=== PATIENT | female | born 1995 | race American Indian/Alaskan Native ===

== ENCOUNTER 2018-08-15 11:05 | Emergency (ER) | payer SELFPAY ==
[2018-08-15 11:20] VITALS: BP 116/72
[2018-08-15] MEDS ORDERED: TORADOL IM ONE (12:13)
[2018-08-15] MEDS ORDERED: DILAUDID IM ONE (12:13)
[2018-08-15] MEDS ORDERED: XYLOCAINE 1%/ EPI 1:100,000 INFILTRATI NR (13:00)
[2018-08-15] MEDS ORDERED: CLEOCIN PO ONE (13:16)
--- NOTE | 2018-08-15 13:16 | Emergency Department Report ---
ED General Adult HPI - General Chief complaint: Skin/Abscess/Foreign Body Stated complaint: CHEST PAIN/INFECTION L BUTT CHEEK Time Seen by Provider: 08/15/18 12:06 Source: patient Mode of arrival: Ambulatory Limitations: No Limitations - History of Present Illness Initial comments: Patient is a 23-year-old Female presenting with a left buttock abscess. Patient states his present for approximately 2-3 days. Patient has had pain as a 7 out of 10 in severity. Patient states is associated nausea and chest discomfort that is intermittent. Patient denies fever currently states she thinks she may have had a fever last night and had chills. Patient state states that the pain is aching in nature. Direct pressure makes it worse Severity scale (0 -10): 8 - Related Data Previous Rx's Medication Instructions Recorded Last Taken Type Clindamycin [Clindamycin CAP] 300 mg PO Q8H #21 cap 08/15/18 Unknown Rx HYDROcodone/APAP 5-325 [[place] 1 each PO Q6HR PRN #14 tablet 08/15/18 Unknown Rx 5/325] Ibuprofen [Motrin 600 MG tab] 600 mg PO Q8H PRN #20 tablet 08/15/18 Unknown Rx Ondansetron [Zofran Odt] 4 mg PO Q8HR #10 tab.rapdis 08/15/18 Unknown Rx Allergies Allergy/AdvReac Type Severity Reaction Status Date / Time No Known Allergies Allergy Unverified 08/15/18 11:09 ED Review of Systems ROS: Stated complaint: CHEST PAIN/INFECTION L BUTT CHEEK Other details as noted in HPI Comment: All other systems reviewed and negative ED Past Medical Hx - Past Medical History Previous Medical History?: No - Surgical History Past Surgical History?: No - Social History Smoking Status: Current Some Day Smoker Substance Use Type: None - Medications Home Medications: Home Medications Medication Instructions Recorded Confirmed Last Taken Type Clindamycin [Clindamycin CAP] 300 mg PO Q8H #21 cap 08/15/18 Unknown Rx HYDROcodone/APAP 5-325 [[place] 1 each PO Q6HR PRN #14 tablet 08/15/18 Unknown Rx 5/325] Ibuprofen [Motrin 600 MG tab] 600 mg PO Q8H PRN #20 tablet 08/15/18 Unknown Rx Ondansetron [Zofran Odt] 4 mg PO Q8HR #10 tab.rapdis 08/15/18 Unknown Rx ED Physical Exam - General Limitations: No Limitations General appearance: alert, in no apparent distress - Head Head exam: Present: atraumatic, normocephalic - Eye Eye exam: Present: normal appearance - ENT ENT exam: Present: mucous membranes moist - Neck Neck exam: Present: normal inspection - Respiratory Respiratory exam: Present: normal lung sounds bilaterally. Absent: respiratory distress - Cardiovascular Cardiovascular Exam: Present: regular rate, normal rhythm. Absent: systolic murmur, diastolic murmur, rubs, gallop - GI/Abdominal GI/Abdominal exam: Present: soft, normal bowel sounds. Absent: distended, tenderness - Extremities Exam Extremities exam: Present: normal inspection - Back Exam Back exam: Present: normal inspection - Neurological Exam Neurological exam: Present: alert, oriented X3 - Psychiatric Psychiatric exam: Present: normal affect, normal mood - Skin Skin exam: Present: warm, dry, intact, normal color. Absent: rash - Expanded Skin Exam Expanded 1 - area of redness, swelling and induration with central fluctuance ED Course Vital Signs 08/15/18 08/15/18 08/15/18 11:17 11:46 12:24 Temperature 98.1 F Pulse Rate 114 H Respiratory 18 14 16 Rate Blood Pressure 116/72 O2 Sat by Pulse 99 Oximetry 08/15/18 12:25 Temperature Pulse Rate Respiratory 16 Rate Blood Pressure O2 Sat by Pulse Oximetry - I & D Left Buttocks Type of Procedure: Complex Site: L buttock Blade Size: 11 I & D Procedure: betadine prep, sterile drapes applied, sterile dressing applied, gauze wick placed Progress: Large amount of purulent material was drained. Iodoform gauze was placed. Was able to break up loculations with a hemostat. Patient achieved good anesthetic with lidocaine with epinephrine. Critical care attestation.: If time is entered above; I have spent that time in minutes in the direct care of this critically ill patient, excluding procedure time. ED Disposition Clinical Impression: Abscess of buttock, left Disposition: DC-01 TO HOME OR SELFCARE Is pt being admited?: No Does the pt Need Aspirin: No Condition: Stable Instructions: Abscess (ED), Abscess Incision and Drainage (ED), Cellulitis (ED) Referrals: ETHEL AGARWAL MD [Primary Care Provider] - 3-5 Days Time of Disposition: 13:15
== END 2018-08-15 13:58 | disposition home or self-care (01) ==
LOC: ED 11:05
DX: L02.31 Cutaneous abscess of buttock (principal); F17.200 Nicotine dependence, unspecified, uncomplicated; R11.0 Nausea; R07.89 Other chest pain
CPT/HCPCS: 96372; 99282; J1170; J1885